=== PATIENT | female | born 1995 | race Two or more races ===

== ENCOUNTER 2017-08-25 18:32 | Emergency (ER) | payer MEDICAID ==
[~2017-08-25] VITALS: Ht 157.5 cm; Wt 77.0 kg
[2017-08-25 19:31] LABS: HEMATOCRIT 44.1 % (34.6-47.8); HEMOGLOBIN 14.9 g/dL (11.7-16.4); WHITE BLOOD COUNT 10.3 x10^3/uL (3.4-10)
[2017-08-25 19:42] LABS: BLOOD UREA NITROGEN 10 mg/dL (7-18)
[2017-08-25 21:47] VITALS: BP 99/60
== END 2017-08-25 22:39 | disposition home or self-care (01) ==
LOC: ED 22:33
DX: D25.1 Intramural leiomyoma of uterus (principal); F17.200 Nicotine dependence, unspecified, uncomplicated
CPT/HCPCS: 36415; 76830; 80048; 81001; 82040; 84703; 85025; 99285

== ENCOUNTER 2019-08-13 18:12 | Inpatient (IN) ==
[~2019-08-13] VITALS: Ht 160 cm; Wt 75.7 kg
--- NOTE | 2019-08-13 18:48 | NUR ---
THIS IS A 24 Y/O FEMALE ARRIVING TO THE ED FOR BACK PAIN THAT IS RADIAITING TO HER CHEST NOW. PT REPORTS SHE HAD FIBROID REMOVAL SURGERY FROM HER UTERUS. SHE REPORTS HER PAIN STARTED IN HER INCESION AND THEN RADIATED TO HER BACK. AND NOW THE PAIN IS RADIAITNG TO HER CHEST. SHE IS COMPLAING OF PAIN 6/10 SUBSTERNAL CHEST PAIN. EKG WILL BE ACQUIRED.
--- NOTE | 2019-08-13 18:50 | NUR ---
PT CONNECTED TO MONITORS AND CALL LIGHT IN REACH. VSS.
--- NOTE | 2019-08-13 18:54 | NUR ---
PT KEEPS REPORTING SEVERE CHEST PAIN. EKG GIVEN TO MD HARSH INFORMED AWAITNG FURTHER ORDERS.
[2019-08-13] MEDS ORDERED: BENZONATATE 100 MG CAPSULE ONE (19:25)
[2019-08-13] MEDS ORDERED: KETOROLAC 30 MG/1 ML ONE (19:26)
[2019-08-13] MEDS ORDERED: ONDANSETRON 2MG/ML, 2ML ONE ×2 (19:26→21:22)
[2019-08-13] MEDS ORDERED: LORazepam 2 MG/ML, 1ML ONE (19:27)
[2019-08-13] MEDS ORDERED: KETOROLAC 30 MG/1 ML IVPush ONE (19:30)
[2019-08-13] MEDS ORDERED: LORazepam 2 MG/ML, 1ML IVPush ONE (19:30)
[2019-08-13] MEDS ORDERED: ONDANSETRON 2MG/ML, 2ML IVPush ONE ×2 (19:30→21:30)
[2019-08-13] MEDS ORDERED: SODIUM CHLORIDE FLUSH 10ML SYR IVF ONE (19:30)
[2019-08-13 19:34] LABS: BASOPHILS # (AUTO) 0.07 x10^3/uL (0-0.1); BASOPHILS % (AUTO) 1 % (0-1); EOSINOPHILS # (AUTO) 0.17 x10^3/uL (0-0.4); EOSINOPHILS % (AUTO) 2 % (1-7); LYMPHOCYTES # (AUTO) 1.07 x10^3/uL (1-3.4); LYMPHOCYTES % (AUTO) 13 % (22-44); MD NO; MEAN CORPUSCULAR HEMOGLOBIN 29.2 pg (27.0-34.8); MEAN CORPUSCULAR HGB CONC 32.7 g/dL (32.4-35.8); MEAN CORPUSCULAR VOLUME 89.2 fL (80-100); MEAN PLATELET VOLUME 7.3 fL (7.4-10.4); MONOCYTES # (AUTO) 0.51 x10^3/uL (0.2-0.8); MONOCYTES % (AUTO) 6 % (2-9); NEUTROPHILS # (AUTO) 6.47 x10^3/uL (1.8-6.8); NEUTROPHILS % (AUTO) 78 % (42-75); PLATELET COUNT 488 x10^3/uL (130-400); RED BLOOD COUNT 4.64 x10^6/uL (3.82-5.3); RED CELL DISTRIBUTION WIDTH 13.9 % (9.6-15.2)
--- NOTE | 2019-08-13 19:37 | NUR ---
PT MEDICATED PER EMAR.
[2019-08-13 19:43] LABS: ALANINE AMINOTRANSFERASE 625 U/L (12-78); ALBUMIN 3.5 g/dL (3.4-5.0); ANION GAP 5 mmol/L (5-15); CHLORIDE 104 mmol/L (98-107); CREATININE 0.83 mg/dL (0.55-1.02)
[2019-08-13 19:48] LABS: ALKALINE PHOSPHATASE 72 U/L (45-117); BILIRUBIN,TOTAL 3.5 mg/dL (0.2-1.0); TOTAL PROTEIN 7.8 g/dL (6.4-8.2); TROPONIN I < 0.015 ng/mL (0.000-0.045)
--- NOTE | 2019-08-13 20:07 | NUR ---
PT TO CTA AT THIS TIME.
[2019-08-13] MEDS ORDERED: HYDROmorphone 1 MG/ML, 1ML VIAL ONE (21:22)
[2019-08-13] MEDS ORDERED: SODIUM CHLORIDE 0.9% 1,000ML IVBOLUS ONE (21:30)
[2019-08-13] MEDS ORDERED: HYDROmorphone 2 MG/ML, 1ML IVPush PRN ×2 (21:30→23:00)
--- NOTE | 2019-08-13 21:40 | NUR ---
PT MEDICATED PER EMAR.
[2019-08-13 21:52] LABS: CULTURE INDICATED? YES; MICROSCOPIC INDICATED
[2019-08-13 22:04] LABS: AMPHETAMINE SCREEN, URINE Positive (Negative); BARBITURATE SCREEN, URINE Negative (Negative); BENZODIAZEPINE SCREEN, URINE Negative (Negative); CANNABINOID SCREEN, URINE Negative (Negative); COCAINE SCREEN, URINE Negative (Negative); METHADONE SCREEN, URINE Negative (Negative); OPIATE SCREEN, URINE Negative (Negative)
[2019-08-13 22:20] VITALS: BP 100/61
[2019-08-13] MEDS: LACTATED RINGERS 1,000 ML IV SCH (22:51)
[2019-08-13] MEDS: NICOTINE 21 MG/24 HR PATCH.TD24 TD SCH (22:52)
[2019-08-13] MEDS ORDERED: ONDANSETRON 2MG/ML, 2ML IVPush PRN (23:00)
[2019-08-13] MEDS ORDERED: BISACODYL 10 MG SUPP PR PRN (23:00)
[2019-08-13] MEDS ORDERED: OMNIPAQUE 350 MG/ML, 100ML BOTTLE ONE (23:27)
[2019-08-14 01:57] VITALS: BP 112/70
[2019-08-14] MEDS: LACTATED RINGERS 1,000 ML IV SCH ×2 (04:10→18:32)
[2019-08-14 06:15] LABS: BASOPHILS # (AUTO) 0.03 x10^3/uL (0-0.1); BASOPHILS % (AUTO) 1 % (0-1); EOSINOPHILS # (AUTO) 0.17 x10^3/uL (0-0.4); EOSINOPHILS % (AUTO) 4 % (1-7); LYMPHOCYTES # (AUTO) 1.04 x10^3/uL (1-3.4); LYMPHOCYTES % (AUTO) 23 % (22-44); MD NO; MEAN CORPUSCULAR HEMOGLOBIN 29.3 pg (27.0-34.8); MEAN CORPUSCULAR HGB CONC 33.1 g/dL (32.4-35.8); MEAN CORPUSCULAR VOLUME 88.5 fL (80-100); MEAN PLATELET VOLUME 7.1 fL (7.4-10.4); MONOCYTES # (AUTO) 0.36 x10^3/uL (0.2-0.8); MONOCYTES % (AUTO) 8 % (2-9); NEUTROPHILS # (AUTO) 2.93 x10^3/uL (1.8-6.8); NEUTROPHILS % (AUTO) 65 % (42-75); PLATELET COUNT 356 x10^3/uL (130-400); RED BLOOD COUNT 3.83 x10^6/uL (3.82-5.3); RED CELL DISTRIBUTION WIDTH 13.4 % (9.6-15.2)
[2019-08-14 06:21] LABS: ALBUMIN 2.8 g/dL (3.4-5.0); ANION GAP 5 mmol/L (5-15); CALCIUM 7.9 mg/dL (8.5-10.1); CHLORIDE 108 mmol/L (98-107)
[2019-08-14 06:26] LABS: ALANINE AMINOTRANSFERASE 570 U/L (12-78); ALKALINE PHOSPHATASE 74 U/L (45-117); BILIRUBIN,TOTAL 3.4 mg/dL (0.2-1.0); CREATININE 0.59 mg/dL (0.55-1.02)
[2019-08-14 08:48] VITALS: BP 126/83
[2019-08-14 11:26] LABS: TRIGLYCERIDES 53 mg/dL (50-200)
[2019-08-14 13:44] VITALS: BP 124/77
[2019-08-14 20:21] VITALS: BP 114/77
[2019-08-14] MEDS: NICOTINE 21 MG/24 HR PATCH.TD24 TD SCH (22:37)
[2019-08-15 01:22] VITALS: BP 114/77
[2019-08-15] MEDS: LACTATED RINGERS 1,000 ML IV SCH ×2 (01:24→08:11)
[2019-08-15 05:35] LABS: ALBUMIN 2.8 g/dL (3.4-5.0); BASOPHILS # (AUTO) 0.04 x10^3/uL (0-0.1); BASOPHILS % (AUTO) 1 % (0-1); CALCIUM 8.3 mg/dL (8.5-10.1); CHLORIDE 110 mmol/L (98-107); EOSINOPHILS # (AUTO) 0.17 x10^3/uL (0-0.4); EOSINOPHILS % (AUTO) 2 % (1-7); LYMPHOCYTES # (AUTO) 1.01 x10^3/uL (1-3.4); LYMPHOCYTES % (AUTO) 14 % (22-44); MD NO; MEAN CORPUSCULAR HEMOGLOBIN 28.9 pg (27.0-34.8); MEAN CORPUSCULAR HGB CONC 32.2 g/dL (32.4-35.8); MEAN CORPUSCULAR VOLUME 89.7 fL (80-100); MEAN PLATELET VOLUME 7.8 fL (7.4-10.4); MONOCYTES # (AUTO) 0.46 x10^3/uL (0.2-0.8); MONOCYTES % (AUTO) 7 % (2-9); NEUTROPHILS # (AUTO) 5.34 x10^3/uL (1.8-6.8); NEUTROPHILS % (AUTO) 76 % (42-75); PLATELET COUNT 351 x10^3/uL (130-400); RED BLOOD COUNT 4.09 x10^6/uL (3.82-5.3)
[2019-08-15 05:41] LABS: ALANINE AMINOTRANSFERASE 493 U/L (12-78); ALKALINE PHOSPHATASE 96 U/L (45-117); ANION GAP 4 mmol/L (5-15); BILIRUBIN,TOTAL 2.4 mg/dL (0.2-1.0); CREATININE 0.68 mg/dL (0.55-1.02); TOTAL PROTEIN 6.4 g/dL (6.4-8.2)
[2019-08-15 07:39] VITALS: BP 106/65
[2019-08-15] MEDS ORDERED: BUPIVACAINE/PF 0.5% ONE (13:41)
[2019-08-15] MEDS ORDERED: BUPIVACAINE/PF 0.25% ONE (13:41)
[2019-08-15] MEDS ORDERED: EPINEPHRINE 1 MG/ML, 1ML ONE (13:41)
[2019-08-15] MEDS ORDERED: PHENYLEPHRINE 10 MG/ML ONE (14:03)
[2019-08-15] MEDS ORDERED: KETOROLAC 30 MG/1 ML ONE (14:03)
[2019-08-15] MEDS ORDERED: MIDAZOLAM 1 MG/ML, 2ML ONE (14:04)
[2019-08-15] MEDS ORDERED: FENTANYL PF 250 MCG/5ML ONE (14:04)
[2019-08-15] MEDS ORDERED: hydrALAzine 20 MG/ML, 1ML IV PRN (14:30)
[2019-08-15] MEDS ORDERED: FENTANYL PF 100 MCG/2ML IV PRN (14:30)
[2019-08-15] MEDS ORDERED: MIDAZOLAM 1 MG/ML, 2ML IV PRN (14:30)
[2019-08-15] MEDS ORDERED: ACETAMINOPHEN 325 MG TABLET PO PRN ×2 (14:30→17:30)
[2019-08-15] MEDS ORDERED: MEPERIDINE/PF 25MG/ML,1ML IVPush PRN (14:30)
[2019-08-15] MEDS ORDERED: ALBUTEROL/IPRATROPIUM 2.5MG/0.5MG, 3 ML NPPB PRN (14:30)
[2019-08-15] MEDS ORDERED: DIAZEPAM 5 MG/ML, 2ML IVPush PRN (14:30)
[2019-08-15] MEDS ORDERED: LABETALOL 5MG/ML, 20ML IV PRN (14:30)
[2019-08-15] MEDS ORDERED: OXYcodone 5 MG/5 ML ORAL.SOL UDC PO PRN (14:30)
[2019-08-15] MEDS ORDERED: PROMETHAZINE 25 MG/ML, 1ML IV PRN (14:30)
[2019-08-15 14:48] LABS: CULTURE INDICATED? YES; MICROSCOPIC INDICATED
[2019-08-15] MEDS ORDERED: CEFAZOLIN 1,000 MG ONE (15:06)
[2019-08-15] MEDS ORDERED: ONDANSETRON 2MG/ML, 2ML ONE (15:06)
[2019-08-15] MEDS ORDERED: ROCURONIUM 10MG/ML,5ML ONE (15:06)
[2019-08-15] MEDS ORDERED: DEXAMETHASONE 4 MG/ML, 1ML ONE (15:06)
[2019-08-15] MEDS ORDERED: PROPOFOL 10 MG/ML, 20ML ONE (15:06)
[2019-08-15] MEDS ORDERED: SUGAMMADEX 200 MG/2 ML IVPush ONE (15:06)
[2019-08-15] MEDS ORDERED: SUCCINYLCHOLINE 20 MG/ML, 10ML ONE (15:06)
[2019-08-15] MEDS ORDERED: FENTANYL PF 100 MCG/2ML ONE (15:35)
[2019-08-15] MEDS ORDERED: PROMETHAZINE 25 MG/ML, 1ML ONE (15:35)
[2019-08-15] MEDS ORDERED: HYDROmorphone 2 MG/ML, 1ML ONE (15:39)
[2019-08-15] MEDS: HYDROmorphone 2 MG/ML, 1ML IVPush PRN ×3 (15:44→16:00)
[2019-08-15] MEDS ORDERED: HYDROmorphone 2 MG/ML, 1ML IVPush PRN (17:30)
[2019-08-15 19:24] VITALS: BP 108/67
[2019-08-15] MEDS: OXYcodone 5 MG/5 ML ORAL.SOL UDC PO PRN (20:00)
[2019-08-15] MEDS: SODIUM CHLORIDE FLUSH 10ML SYR IVF SCH (20:04)
[2019-08-15] MEDS ORDERED: LACTATED RINGERS 1,000 ML IV SCH (23:00)
[2019-08-15] MEDS: NICOTINE 21 MG/24 HR PATCH.TD24 TD SCH (23:03)
[2019-08-16 01:26] VITALS: BP 135/82
[2019-08-16 05:39] LABS: ALBUMIN 2.8 g/dL (3.4-5.0); ANION GAP 8 mmol/L (5-15); CALCIUM 8.5 mg/dL (8.5-10.1); CHLORIDE 108 mmol/L (98-107)
[2019-08-16 05:42] LABS: ALANINE AMINOTRANSFERASE 367 U/L (12-78); ALKALINE PHOSPHATASE 94 U/L (45-117); BILIRUBIN,TOTAL 0.8 mg/dL (0.2-1.0); CREATININE 0.63 mg/dL (0.55-1.02); TOTAL PROTEIN 6.4 g/dL (6.4-8.2)
[2019-08-16 05:50] LABS: BASOPHILS # (AUTO) 0.05 x10^3/uL (0-0.1); BASOPHILS % (AUTO) 1 % (0-1); EOSINOPHILS # (AUTO) 0.05 x10^3/uL (0-0.4); EOSINOPHILS % (AUTO) 1 % (1-7); LYMPHOCYTES # (AUTO) 1.15 x10^3/uL (1-3.4); LYMPHOCYTES % (AUTO) 12 % (22-44); MD NO; MEAN CORPUSCULAR HEMOGLOBIN 28.9 pg (27.0-34.8); MEAN CORPUSCULAR HGB CONC 32.8 g/dL (32.4-35.8); MEAN CORPUSCULAR VOLUME 88.1 fL (80-100); MEAN PLATELET VOLUME 7.7 fL (7.4-10.4); MONOCYTES # (AUTO) 0.58 x10^3/uL (0.2-0.8); MONOCYTES % (AUTO) 6 % (2-9); NEUTROPHILS # (AUTO) 7.55 x10^3/uL (1.8-6.8); NEUTROPHILS % (AUTO) 81 % (42-75); PLATELET COUNT 367 x10^3/uL (130-400); RED BLOOD COUNT 4.15 x10^6/uL (3.82-5.3); RED CELL DISTRIBUTION WIDTH 13.9 % (9.6-15.2)
[2019-08-16 07:51] VITALS: BP 117/67
[2019-08-16] MEDS: SODIUM CHLORIDE FLUSH 10ML SYR IVF SCH (10:00)
[2019-08-16] MEDS: OXYcodone 5 MG/5 ML ORAL.SOL UDC PO PRN (10:12)
[2019-08-16] MEDS ORDERED: FLU VACC QS2019-20 36MOS UP/PF 0.5 ML IM-VACC ONE (11:30)
[2019-08-16] MEDS ORDERED: OXYC5TAB3 PO (12:16)
[2019-08-16] MEDS ORDERED: CELE200C PO (12:17)
== END 2019-08-16 12:45 | disposition home or self-care (01) | DRG 417 ==
LOC: ED 19:15 → EDIP 21:31 → 3N 22:11 → DCLOUNGE 08-16 12:40
PROVIDERS: ADMIT Family Medicine; ATTEND Family Medicine
PROC: 0FT44ZZ Resection of Gallbladder, Percutaneous Endoscopic Approach (ICD-10-PCS; principal; 2019-08-15 13:00)
DX: K80.21 Calculus of gallbladder without cholecystitis with obstruction (principal); K85.10 Biliary acute pancreatitis without necrosis or infection; D25.9 Leiomyoma of uterus, unspecified; Z83.3 Family history of diabetes mellitus; F15.90 Other stimulant use, unspecified, uncomplicated; F17.210 Nicotine dependence, cigarettes, uncomplicated; Z80.3 Family history of malignant neoplasm of breast; Z88.5 Allergy status to narcotic agent
CPT/HCPCS: 36415; 74018; 96374; 96375; 99285; S0020; 71045; 71275; 74177; 74181; 76700; 80053; 80074; 80307; 81001; 83690; 84478; 84484; 84703; 85025; 85379; 87086; 88304; 90686; 93005; G0378; J0171; J0690; J1100; J1170; J1885; J2250; J2405; J2704; J3010; J3490; Q9967; J0330; J2060; J2370; J7030; J7120

== ENCOUNTER 2019-12-02 15:34 | Emergency (ER) | payer MEDICAID ==
[~2019-12-02] VITALS: Ht 160 cm; Wt 74.3 kg
[~2019-12-02 15:34] MED LIST: CELE200C PO; OXYC5TAB3 PO
--- NOTE | 2019-12-02 16:26 | NUR ---
PT OUT OF ROOM AT IMAGING
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
[2019-12-02 16:47] VITALS: BP 148/68
--- NOTE | 2019-12-02 16:47 | NUR ---
Tmamy johns in ED - 12/02/19 at 1648 by SYEDA PT ALLOWED FOR NIBP. REFUSED PULSE OX.
--- NOTE | 2019-12-02 17:14 | NUR ---
Patient/Caregiver given discharge instructions and they have confirmed that they understand the instructions. Patient ambulatory with steady gait. PT LEFT WITH ALL PERSONAL BELONGINGS.
== END 2019-12-02 17:21 | disposition home or self-care (01) ==
LOC: ED 16:04
DX: R51 Headache (principal)
CPT/HCPCS: 70450; 70486; 99285

== ENCOUNTER 2020-09-07 01:40 | Emergency (ER) | payer MEDICAID ==
[~2020-09-07] VITALS: Ht 160 cm; Wt 89.0 kg
[2020-09-07 02:48] LABS: ALBUMIN 3.1 g/dL (3.4-5.0); ANION GAP 5 mmol/L (5-15); CALCIUM 7.8 mg/dL (8.5-10.1); CHLORIDE 111 mmol/L (98-107); CREATININE 0.84 mg/dL (0.55-1.02)
[2020-09-07 02:50] LABS: BASOPHILS % (AUTO) 1 % (0-1); EOSINOPHILS % (AUTO) 4 % (1-7); LYMPHOCYTES % (AUTO) 41 % (22-44); MEAN CORPUSCULAR HEMOGLOBIN 29.4 pg (27.0-34.8); MEAN CORPUSCULAR HGB CONC 33.9 g/dL (32.4-35.8); MONOCYTES % (AUTO) 9 % (2-9); NEUTROPHILS % (AUTO) 44 % (42-75); PLATELET COUNT 266 x10^3/uL (130-400); RED CELL DISTRIBUTION WIDTH 13.2 % (9.6-15.2)
[2020-09-07 03:05] LABS: MD NO
[2020-09-07] MEDS ORDERED: KETOROLAC 30 MG/1 ML IM ONE (04:00)
[2020-09-07] MEDS ORDERED: KETOROLAC 60 MG/2 ML ONE (04:04)
[2020-09-07 04:19] VITALS: BP 105/58
== END 2020-09-07 04:27 | disposition home or self-care (01) ==
LOC: ED 02:31
DX: R20.2 Paresthesia of skin (principal); F17.290 Nicotine dependence, other tobacco product, uncomplicated
CPT/HCPCS: 36415; 80048; 82040; 84443; 84703; 85025; 96372; 99283; J1885